=== PATIENT | male | born 1970 | race American Indian/Alaskan Native ===

== ENCOUNTER 2019-12-06 19:31 | Emergency (ER) | payer MEDICARE ==
[2019-12-06 20:19] LABS: Basophils # (Auto) 0.1 K/mm3 (0.0-0.1); Basophils % (Auto) 0.6 % (0.0-1.8); Eosinophils % (Auto) 0.2 % (0.0-4.3); Hematocrit 46.7 % (35.5-45.6); Hemoglobin 16.2 gm/dl (11.8-15.2); Lymphocytes # (Auto) 3.4 K/mm3 (1.2-5.4); Lymphocytes % (Auto) 35.3 % (13.4-35.0); Mean Corpuscular HGB Conc 35 % (32-34); Mean Corpuscular Volume 90 fl (84-94); Monocytes % (Auto) 10.1 % (0.0-7.3); Platelet Count 136 K/mm3 (140-440); Red Blood Count 5.17 M/mm3 (3.65-5.03)
[2019-12-06 20:38] LABS: BUN/Creatinine Ratio 9; Blood Urea Nitrogen 7 mg/dL (9-20); Calcium 10.9 mg/dL (8.4-10.2); Hemolysis Index 19
[2019-12-06] MEDS ORDERED: ACETAMINOPHEN 325 MG TAB PO ONE (21:50)
[2019-12-06] MEDS ORDERED: MELATONIN 5 MG TAB PO PRN (21:50)
[2019-12-06] MEDS ORDERED: POTASSIUM CHLORIDE ER 20 MEQ TAB PO ONE (21:50)
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
[2019-12-06 22:00] LABS: Bacteria,Urine 1+ /HPF (Negative); Bilirubin,Urine NEG (Negative); Blood,Urine NEG (Negative); Color,Urine Yellow (Yellow); Mucus,Urine FEW /HPF; Protein,Urine <15 mg/dL mg/dL (Negative); Urobilinogen,Urine < 2.0 mg/dL (<2.0)
[2019-12-06] MEDS ORDERED: D5W/0.45% NACL 1,000 ML IV SCH (22:00)
[2019-12-06 22:20] LABS: Amphetamine Screen,Urine PRESUMPTIVE NEGATIVE; Benzodiazepines Screen,Urine PRESUMPTIVE NEGATIVE; Cannabinoid Screen,Urine PRESUMPTIVE NEGATIVE; Cocaine Screen,Urine PRESUMPTIVE NEGATIVE; Methadone Screen,Urine PRESUMPTIVE NEGATIVE; Opiate Screen,Urine PRESUMPTIVE NEGATIVE
[2019-12-06] MEDS: THIAMINE 100 MG TAB PO ONE (22:57)
[2019-12-06] MEDS ORDERED: MAGNESIUM OXIDE 400 MG TAB PO ONE (23:18)
[2019-12-06] MEDS ORDERED: MAGNESIUM SULFATE 2 GM/50 ML BAG IV ONE (23:18)
[2019-12-06] MEDS ORDERED: ONDANSETRON 4 MG ODT TAB PO PRN (23:19)
[2019-12-06] MEDS ORDERED: ACETAMINOPHEN 325 MG TAB PO PRN (23:19)
[2019-12-06] MEDS ORDERED: LORazepam 2 MG/ML VIAL IV PRN (23:20)
[2019-12-06] MEDS ORDERED: LORazepam 2 MG TAB PO PRN (23:20)
[2019-12-06] MEDS ORDERED: chlordiazePOXIDE 25 MG CAP PO PRN ×2 (23:20)
[2019-12-06 23:24] LABS: BUN/Creatinine Ratio 10; Blood Urea Nitrogen 8 mg/dL (9-20); Calcium 10.5 mg/dL (8.4-10.2); Hemolysis Index 19
[2019-12-06] MEDS ORDERED: SODIUM CHLORIDE 0.9% 1000 ML 2,000 ML IV ONE (23:27)
[2019-12-07 09:25] VITALS: BP 148/104
[2019-12-07] MEDS ORDERED: THIAMINE 100 MG TAB PO SCH (10:00)
[2019-12-07] MEDS ORDERED: MULTIVITAMINS ,THERAPEUTIC TAB PO SCH (10:00)
[2019-12-07] MEDS: THIAMINE 100 MG TAB PO ONE (10:10)
== END 2019-12-07 15:00 | disposition left against medical advice (07) ==
LOC: ED 19:31
DX: E83.42 Hypomagnesemia (principal); E87.6 Hypokalemia; M54.5 Low back pain; E66.9 Obesity, unspecified; Z68.36 Body mass index [BMI] 36.0-36.9, adult; R74.8 Abnormal levels of other serum enzymes; R56.9 Unspecified convulsions; F43.10 Post-traumatic stress disorder, unspecified; Z98.890 Other specified postprocedural states; Z79.899 Other long term (current) drug therapy; Z88.8 Allergy status to other drugs, medicaments and biological substances
CPT/HCPCS: 36415; 80048; 80307; 81001; 82550; 83735; 85025; 93005; 96361; 96365; 99284; J3475; J7030; 80320; G0480